=== PATIENT | female | born 1950 | race Caucasian/White ===

== ENCOUNTER → 2018-07-21 | Outpatient (CLI) | payer MEDICARE, BC | LOC: MC.RAD 11:18 | DX: Z12.31 Encounter for screening mammogram for malignant neoplasm of breast (principal) ==

== ENCOUNTER → 2019-09-13 | Outpatient (CLI) | payer MEDICARE, BC | LOC: MC.RAD 10:24 | DX: Z12.31 Encounter for screening mammogram for malignant neoplasm of breast (principal) ==

== ENCOUNTER → 2020-09-20 | Outpatient (CLI) | payer MEDICARE, BC | LOC: MC.RAD 14:00 | DX: Z12.31 Encounter for screening mammogram for malignant neoplasm of breast (principal) ==

== ENCOUNTER → 2021-07-26 | Outpatient (CLI) | payer MEDICARE, BC | LOC: COL.RAD 14:20 | DX: E04.2 Nontoxic multinodular goiter (principal) ==

== ENCOUNTER → 2021-10-29 | Outpatient (CLI) | payer MEDICARE, BC | LOC: MC.RAD 08:51 | DX: Z12.31 Encounter for screening mammogram for malignant neoplasm of breast (principal); Z78.0 Asymptomatic menopausal state ==

== ENCOUNTER → 2022-07-31 | Outpatient (CLI) | payer MEDICARE, BC | LOC: COL.RAD 10:30 | DX: E04.2 Nontoxic multinodular goiter (principal) ==

== ENCOUNTER → 2023-01-20 | Outpatient (CLI) | payer MEDICARE, BC ==
[~2023-01-20] MED LIST: D3-5050000 IU; MASON NATURAL2000 IU PO; NORVASC 10MG10 MG PO; PEPCID AC 10MG10 MG PO; PEPCID AC20 MG PO
== END ==
LOC: MC.RAD 11-06 10:45
DX: Z12.31 Encounter for screening mammogram for malignant neoplasm of breast (principal)

== ENCOUNTER → 2023-11-23 | Outpatient (CLI) | payer SELFPAY | LOC: WSC 11:59 | DX: M25.561 Pain in right knee (principal) ==

== ENCOUNTER → 2023-11-30 | Outpatient (CLI) | payer SELFPAY | END | disposition home or self-care (01) | LOC: WSPT 14:13 | DX: M25.561 Pain in right knee (principal) ==

== ENCOUNTER → 2023-12-09 | Outpatient (CLI) | payer SELFPAY | END | disposition home or self-care (01) | LOC: WSPT 12:16 | DX: M25.561 Pain in right knee (principal) ==

== ENCOUNTER 2023-12-16 11:15 | Outpatient (RCR) | payer MEDICARE, BC | END 2023-12-20 | disposition home or self-care (01) | LOC: WSPT | DX: M25.561 Pain in right knee (principal) ==

== ENCOUNTER → 2024-01-22 | Outpatient (CLI) | payer MEDICARE, BC | LOC: MC.RAD 08:45 | DX: Z12.31 Encounter for screening mammogram for malignant neoplasm of breast (principal) ==